=== PATIENT | male | born 1995 | race Caucasian/White ===

== ENCOUNTER 2024-03-02 10:59 | Emergency (ER) | payer OTHER, SELFPAY ==
[2024-03-02 11:03] VITALS: BP 126/74
--- NOTE | 2024-03-02 12:36 | ED.GENMED ---
History of Present Illness
General
Chief Complaint: Back Pain
Time Seen by Provider: 03/02/24 12:02
History of Present Illness
History of Present Illness:
29-year-old male presents to the emergency department for evaluation of midline low back pain radiating to bilateral gluteal region beginning yesterday while walking. Worsened this morning and has a difficult time standing upright due to pain. No
loss of urinary control. History of L4 disc herniation that was treated supportively/conservatively 4 to 5 years ago. No fevers or chills. No traumatic injuries.
Past History
Past History
ED Past Medical History: None
ED Past Surgical History: Orthopedic and Tonsilectomy
Social History
Tobacco: Vaping
Alcohol: None
Drug: None
Living: with family
Review of Systems
Review of Systems
Allergies reviewed?: Yes
All Other Systems: ROS reviewed and negative except as documented in HPI and ROS
Phy Exam
Physical Exam
Physical Exam:
GEN: Well appearing, NAD, WDWN
HEENT: Oral mucosa moist, no scleral icterus
Cardiac: Regular rate
Lung: No respiratory distress, no tachypnea
MSK: No gross deformity or injuries. No midline lumbar spine tenderness. Lumbar range of motion limited secondary to pain, straight leg raise positive bilaterally at 45 degrees. Patellar reflexes 2+. Bilateral lower extremity strength 5 out of 5
in all [place]
Skin: Good color, no pallor or jaundice, no rashes
Neuro: AO x3, moves all extremities freely
Psych: Calm, cooperative
Course
Orders/Labs/Results
Orders:
Orders
03/02/24 12:36
Ketorolac [Toradol] 30 mg IM NOW STA
Vital Signs
Initial and Last Documented VS:
Initial Vital Signs
Temp Pulse Resp BP Pulse Ox
98.5 F 89 16 126/74 98
03/02/24 11:03 03/02/24 11:03 03/02/24 11:03 03/02/24 11:03 03/02/24 11:03
Last Documented Vital Signs
Temp Pulse Resp BP Pulse Ox
98.5 F 89 16 126/74 98
03/02/24 11:03 03/02/24 11:03 03/02/24 11:03 03/02/24 11:03 03/02/24 11:03
MDM/Problems Addressed
MDM/Problems Addressed:
Acute nontraumatic low back pain likely related to acute flareup of discogenic issue from prior. No lower extremity weakness or urinary symptoms warranting urgent MRI. Discussed supportive care and follow-up parameters
*Critical Care Note
Total Time (30-74mins, 75-104mins- exclusive of procedures): Not Applicable
ED Attending Note
-
Portions of this chart may have been created with voice recognition software.� Occasional wrong word or��sound alike� substitutions may have occurred due to the inherent limitations of voice recognition software.
Discharge Plan
Departure
Patient Disposition: Home (Routine Discharge)
Date of Disposition: 03/02/24
Time of Disposition: 12:37
Patient with high blood pressure during this ER visit?: No
Discharge Problem:
Acute bilateral low back pain
Instructions: Low Back Pain (DC)
Prescriptions:
New
methylprednisolone [Medrol (Mp)] 4 mg tablets,dose pack
See Rx Instructions .ROUTE .COMPLEX Qty: 21 0RF
Rx Instructions:
orally per package directions
No Action
amoxicillin 875 mg Tablet
875 mg PO BID
Patient Comments:
02/03/23 filled on 02/04/23 #20 @ [facility] in [place]
fluticasone propionate [Flovent HFA] 110 mcg/actuation Hfa Aerosol Inhaler
2 puff INHALATION BIDPRN PRN (Reason: sob)
albuterol sulfate 90 mcg/actuation Aerosol Powdr Breath Activated
2 inh INHALATION Q6HPRN PRN (Reason: sob)
Referrals:
Noel Villalpando MD [Active] -
Interventions
Interventions:
*Risk Screen - Suicide Last Done: 03/02/24 11:03
*General Assessment Last Done: 03/02/24 13:06
*Neglect/Abuse Screening Last Done: 03/02/24 11:03
ED- Fall Risk Assessment Last Done: 03/02/24 13:06
*Nursing Disposition Last Done: 03/02/24 13:06
ED-Musculoskeletal Assessment Last Done: 03/02/24 12:50
Discharge Date and Time
Discharge Date/Time: 03/02/24 13:20
Print Language: VIET[place]
[2024-03-02] MEDS: TORADOL 30 MG IM (12:51)
== END 2024-03-02 13:20 | disposition home or self-care (01) ==
LOC: EMR 10:59
PROVIDERS: EMERGENCY PHYSICIAN Student in an Organized Health Care Education/Training Program; FAMILY PHYSICIAN Nurse Practitioner Family
DX: M54.50 Low back pain, unspecified (principal); F17.290 Nicotine dependence, other tobacco product, uncomplicated
CPT/HCPCS: 99282; 96374